=== PATIENT | female | born 1965 | race Caucasian/White ===

== ENCOUNTER 2019-04-13 05:23 | Inpatient (IN) | payer BC, MEDICAID ==
[2019-04-13] MEDS ORDERED: Acetaminophen 500 MG Tab PO ONE (05:45)
[2019-04-13] MEDS ORDERED: Gabapentin 300 MG Cap PO ONE (05:45)
[2019-04-13] MEDS ORDERED: Scopolamine 1.5 MG Transdermal Patch TOP ONE (05:45)
[2019-04-13] MEDS ORDERED: Celecoxib 200 MG Cap PO ONE (05:45)
[2019-04-13] MEDS ORDERED: Dextrose 5%-Lactated Ringers 1,000 ML IV SCH (06:00)
[2019-04-13] MEDS ORDERED: Neostigmine Methylsulfate 1 MG/ML 5 ML Syringe ONE (06:18)
[2019-04-13] MEDS ORDERED: Succinylcholine 200 MG/10 ML MDV ONE (06:18)
[2019-04-13] MEDS ORDERED: Dexamethasone 4 MG/ML SDV ONE (06:18)
[2019-04-13] MEDS ORDERED: Lactated Ringers 1,000 ML ONE ×2 (06:18→08:54)
[2019-04-13] MEDS ORDERED: Propofol 200 MG/20 ML SDV ONE (06:18)
[2019-04-13] MEDS ORDERED: Rocuronium 50 MG/5 ML Vial ONE ×2 (06:18→08:54)
[2019-04-13] MEDS ORDERED: Ondansetron 4 MG/2 ML SDV ONE (06:18)
[2019-04-13] MEDS ORDERED: Glycopyrrolate 0.2 MG/ML 5 ML MDV ONE (06:18)
[2019-04-13] MEDS ORDERED: fentaNYL 250 MCG/5 ML SDV ONE (06:19)
[2019-04-13] MEDS ORDERED: Midazolam 1 MG/ML 2 ML SDV ONE (06:19)
[2019-04-13] MEDS ORDERED: cefOXitin 2 GM Vial ONE (07:09)
[2019-04-13] MEDS ORDERED: Ketamine 500 MG/5 ML MDV IV SCH (07:15)
[2019-04-13] MEDS ORDERED: Ketamine 50 MG in Sodium Chloride 0.9% 49.5 ML IV SCH (07:15)
[2019-04-13] MEDS ORDERED: Lidocaine 2% 100 MG/5 ML Syringe IVPUSH SCH (07:15)
[2019-04-13] MEDS ORDERED: cefOXitin 2 GM in Sodium Chloride 0.9% 50 ML IV ONE (07:15)
[2019-04-13 07:23] LABS: HEMOGLOBIN A1C 5.9 % (4.5-6.2)
[2019-04-13] MEDS: Lidocaine 0.4%/D5W 2 GM/500 ML BAG IV SCH (08:00)
[2019-04-13] MEDS ORDERED: hydrOXYzine HCl 100 MG/2 ML SDV IM ONE (10:35)
[2019-04-13] MEDS ORDERED: fentaNYL 100 MCG/2 ML SDV IVPUSH ONE ×2 (10:36→10:59)
[2019-04-13] MEDS ORDERED: Labetalol 100 MG/20 ML MDV IVPUSH ONE ×2 (11:03→11:17)
[2019-04-13] MEDS ORDERED: HYDROmorphone 1 MG/ML Syringe IV PRN (12:32)
[2019-04-13] MEDS ORDERED: HYDROmorphone 0.5 MG/0.5 ML Syringe IVPUSH PRN (12:32)
[2019-04-13] MEDS ORDERED: hydrOXYzine HCl 100 MG/2 ML SDV IM PRN (12:32)
[2019-04-13] MEDS ORDERED: Labetalol 20 MG/4 ML Syringe IVPUSH PRN (12:32)
[2019-04-13] MEDS ORDERED: Ondansetron 4 MG/2 ML SDV IVPUSH PRN (12:32)
[2019-04-13] MEDS ORDERED: Metoclopramide 10 MG/2 ML SDV IVPUSH PRN (12:32)
[2019-04-13] MEDS ORDERED: diphenhydrAMINE 50 MG/ML SDV IVPUSH PRN (12:32)
[2019-04-13] MEDS ORDERED: Pantoprazole 40 MG Vial IVPUSH SCH (13:00)
[2019-04-13] MEDS: Gabapentin 250 MG/5 ML Solution ML 470 ML Bottle PO SCH ×2 (13:09→23:02)
[2019-04-13] MEDS: Acetaminophen Soln 650 MG/20.3 ML UD Cup PO SCH ×2 (13:09→18:38)
[2019-04-13] MEDS: Dextrose 5%-Lactated Ringers 1,000 ML IV SCH ×2 (13:55→23:01)
[2019-04-13] MEDS: cefOXitin 2 GM in Sodium Chloride 0.9% 50 ML IV SCH ×2 (15:17→19:44)
[2019-04-13] MEDS ORDERED: MVI, Adult with Vitamin K 10 ML, Thiamine 200 MG, Chromium/Copper/Mang/Selen/Zn 1 ML in... IV SCH ×4 (16:00)
[2019-04-13] MEDS: Heparin Sodium 5,000 Units/ML Vial SUBCUT SCH (16:19)
[2019-04-13] MEDS: Metoprolol Tartrate 25 MG Tab PO SCH (23:01)
[2019-04-14] MEDS ORDERED: Iopamidol 510 MG/ML 50 ML SDV PO STA (01:21)
[2019-04-14] MEDS: Acetaminophen Soln 650 MG/20.3 ML UD Cup PO SCH ×4 (01:30→17:51)
[2019-04-14] MEDS: cefOXitin 2 GM in Sodium Chloride 0.9% 50 ML IV SCH ×2 (01:32→08:54)
--- NOTE | 2019-04-14 02:37 | CRLCR ---
Indication: Modified upper GI series Technique: Three views of the abdomen administered following the administration of oral contrast Comparison: None available Findings/Impression : Post gastrojejunostomy changes seen with a left upper quadrant drain. Contrast opacifying the distal esophagus, gastrojejunostomy and proximal, mildly prominent left abdominal jejunal segments. No gross contrast extravasation visualized. Dictated by Ladarius Boone MD @ 04/14/2019 2:35:23 AM Dictated by: Ladarius Boone MD @ 04/14/2019 02:35:29 (Electronically Signed)
[2019-04-14] MEDS: Heparin Sodium 5,000 Units/ML Vial SUBCUT SCH ×2 (05:02→16:36)
[2019-04-14] MEDS: Dextrose 5%-Lactated Ringers 1,000 ML IV SCH (05:07)
[2019-04-14] MEDS ORDERED: Ondansetron 4 MG Tab.DIS PO PRN (08:01)
[2019-04-14] MEDS ORDERED: Meclizine 25 MG Tab PO PRN (08:02)
[2019-04-14] MEDS ORDERED: Dextrose 5%-Lactated Ringers 1,000 ML IV SCH (08:15)
[2019-04-14] MEDS ORDERED: Metoprolol Tartrate 25 MG Tab PO SCH (08:15)
[2019-04-14] MEDS: Lidocaine 0.4%/D5W 2 GM/500 ML BAG IV SCH (08:23)
[2019-04-14] MEDS: Celecoxib 200 MG Cap PO SCH (08:25)
[2019-04-14] MEDS: Metoprolol Tartrate 25 MG Tab PO SCH ×2 (08:25→20:22)
[2019-04-14] MEDS: Isosorbide Mononitrate 30 MG Tab.ER PO SCH (08:26)
[2019-04-14] MEDS: Gabapentin 250 MG/5 ML Solution ML 470 ML Bottle PO SCH ×3 (08:53→20:21)
[2019-04-14] MEDS: SCOPOLAMINE PATCH CHECK TOP SCH (08:56)
[2019-04-14] MEDS: CHECK PATCH DAILY TOP SCH (08:56)
[2019-04-14] MEDS ORDERED: ISOSORBIDE MONONITRATE 60 MG PO SCH (09:00)
[2019-04-14] MEDS ORDERED: Sodium Chloride 0.65% Nasal Spray 45 ML Bottle NAS PRN (09:02)
--- NOTE | 2019-04-14 11:34 | PN ---
DATE OF SERVICE: 04/14/2019 SUBJECTIVE: Velvet is postoperative day 1 following a Coleen-en-Y gastric bypass surgery. Her upper GI was normal. Pain is controlled. Vital signs stable. She has been up, ambulating. Oral intake was 720 and urine output 3600. MOHAMUD drain put out 139 of a light pink drainage. REVIEW OF SYSTEMS: Remainder of review of systems negative for any pertinent positives and negatives. OBJECTIVE: GENERAL: Velvet Swenson is a 54-year-old female. She is alert and orientated. VITAL SIGNS: TPR 95.7, 86, 16. Blood pressure 134/83. HEENT: Negative. NECK: Supple. HEART: Regular rate and rhythm. LUNGS: Clear. ABDOMEN: Dressings dry and intact. Abdominal binder is on. MOHAMUD drain intact. EXTREMITIES: SCDs are on. There is no peripheral edema. ASSESSMENT: Laparoscopic Coleen-en-Y gastric bypass surgery with liver biopsy, repair of diaphragmatic hernia, and excision of mediastinal lipoma for morbid obesity, hepatomegaly, diaphragmatic hernia, and mediastinal lipoma, 04/13/2019. Surgeon, Jimenez Hernández MD. PLAN: 1. Step-2 gastric bypass diet without cereal. 2. Decrease IV to 100 mL/hour. 3. Communication order, 3 med cups per hour to record at bedside. 4. Dressing off. 5. May shower. 6. Start Imdur 60 mg p.o. daily, lisinopril/hydrochlorothiazide 20/25 one tablet daily, Antivert 25 mg p.o. daily p.r.n., Lopressor 25 mg p.o. every 12 hours, Zofran ODT 4 mg sublingual q.4 hours p.r.n. nausea. 7. Good pulmonary toilet. 8. We will evaluate p.r.n. or in a.m. Natty Ford PA-C /[id number]
[2019-04-14] MEDS ORDERED: Pantoprazole 40 MG Delayed-Release Granules 1 Packet PO SCH (14:00)
[2019-04-14] MEDS ORDERED: MVI, Adult with Vitamin K 10 ML, Thiamine 200 MG, Chromium/Copper/Mang/Selen/Zn 1 ML in... IV SCH ×4 (16:00)
[2019-04-14] MEDS: Hydrochlorothiazide 25 MG Tab PO SCH (16:37)
[2019-04-14] MEDS: Lisinopril 20 MG Tab PO SCH (16:37)
[2019-04-14] MEDS ORDERED: Lisinopril 20 MG Tab PO SCH (17:00)
[2019-04-14] MEDS ORDERED: Hydrochlorothiazide 25 MG Tab PO SCH (17:00)
[2019-04-14] MEDS: HYDROmorphone 2 MG Tab PO PRN (22:40)
[2019-04-15] MEDS: Acetaminophen Soln 650 MG/20.3 ML UD Cup PO SCH ×2 (00:30→05:35)
[2019-04-15] MEDS: Heparin Sodium 5,000 Units/ML Vial SUBCUT SCH (04:00)
[2019-04-15] MEDS: HYDROmorphone 2 MG Tab PO PRN ×2 (05:45→09:40)
[2019-04-15] MEDS: Isosorbide Mononitrate 30 MG Tab.ER PO SCH (07:58)
[2019-04-15] MEDS: Celecoxib 200 MG Cap PO SCH (07:59)
[2019-04-15] MEDS: Lisinopril 20 MG Tab PO SCH (08:41)
[2019-04-15] MEDS: Hydrochlorothiazide 25 MG Tab PO SCH (08:42)
[2019-04-15] MEDS: Metoprolol Tartrate 25 MG Tab PO SCH (08:42)
[2019-04-15] MEDS: CHECK PATCH DAILY TOP SCH (08:44)
[2019-04-15] MEDS: SCOPOLAMINE PATCH CHECK TOP SCH (08:45)
[2019-04-15] MEDS: Gabapentin 250 MG/5 ML Solution ML 470 ML Bottle PO SCH (08:52)
[2019-04-15] MEDS ORDERED: Cyanocobalamin (Vitamin B12) 1,000 MCG/ML SDV IM ONE (09:00)
--- NOTE | 2019-04-15 18:22 | DISCH ---
ADMISSION DIAGNOSES: 1. Morbid obesity, BMI 51. 2. Hypertension. 3. Hypertriglyceridemia. 4. Benign proximal positional vertigo. 5. Nonobstructive atherosclerosis of coronary artery. 6. Obstructive sleep apnea, on CPAP. DISCHARGE DIAGNOSES: 1. Laparoscopic Coleen-en-Y gastric bypass surgery with liver biopsy. 2. Repair of paraesophageal diaphragmatic hernia. 3. Excision of mediastinal lipoma for morbid obesity. 4. Hepatomegaly. 5. Diaphragmatic hernia. 6. Mediastinal lipoma. DATE OF SURGERY: 04/13/2019. Surgeon, Jimenez Hernández MD. HISTORY: Velvet Swenson is a 54-year-old female with longstanding history of morbid obesity and increasing comorbidities. After preoperative evaluation and discussion of possible risks and possible complications, she wished to proceed with surgical procedure. HOSPITAL COURSE: Velvet had her surgery on 04/13/2019. She had no operative complications. On postoperative day #1, her upper GI was normal. She was started on a step 2 gastric bypass diet without cereal. Her home medications were started. On postoperative day #2, her pain was well managed. Activity was good. She received dietary instruction. B12 1000 mcg injection and was able to be discharged to home. PHYSICAL EXAMINATION: GENERAL: Velvet Swenson is a 54-year-old female. She is alert, orientated. VITAL SIGNS: Height is 5 feet 6 inches. Weight is 318 pounds. BMI is 51.3. TPR is 97.7, 80, 16. Blood pressure 122/60. HEENT: Negative. NECK: Supple. HEART: Regular rate and rhythm. LUNGS: Clear. ABDOMEN: Incisions look good. Abdominal binder is on. MOHAMUD drain was removed. 4x4 was placed over MOHAMUD drain site. EXTREMITIES: Without peripheral edema. DISPOSITION: Discharge to home. CONDITION: Stable and improving. FOLLOWUP: Followup appointment with Natty Ford PA-C, on 04/22/2019 at 11 a.m. HOME MEDICATIONS: 1. Tylenol 650 mg oral q.6 hours p.r.n. pain. 2. Celebrex 200 mg p.o. daily #14. 3. Zofran ODT 4 mg every 4 hours p.r.n. nausea #30. 4. She is to resume home medication of Imdur 60 mg daily. 5. Lisinopril/hydrochlorothiazide 20/25 one tablet every evening. 6. Antivert 25 mg oral daily p.r.n. dizziness. 7. Metoprolol 25 mg oral every 12 hours. 8. Protonix 40 mg oral daily. 9. Papaya enzyme one tablet as directed. 10.Lipitor 80 mg oral at bedtime. 11.She is to discontinue taking her vitamins and supplements after first postoperative appointment. DIET: Step 2 gastric bypass diet with no cereal until Sunday, April 28, 2019. OTHER ACTIVITY: No lifting over 10 pounds for 2 weeks. Walk at least 6 times inside your house a day. Driving, do not drive for 1 week. Shower/bathing, may shower. Notify provider if any fever, nausea, or vomiting. Keep site clean and dry. Wear abdominal binder for 2 weeks and then as tolerated. SPECIAL INSTRUCTIONS: Use incentive spirometer 10 times every hour while awake for 1 week.
--- NOTE | 2019-04-16 08:37 | OR ---
DATE OF PROCEDURE: 04/13/2019 SURGEON: Jimenez Hernández MD PREOPERATIVE DIAGNOSIS: Morbid obesity. POSTOPERATIVE DIAGNOSES: 1. Morbid obesity. 2. Marked hepatomegaly. 3. Paraesophageal diaphragmatic hernia. 4. Mediastinal lipoma. OPERATIVE PROCEDURES: 1. Laparoscopic Coleen-en-Y gastric bypass with long-limb gastroenterostomy (89342). 2. Rocky-Cut needle liver biopsy (26778). 3. Repair of paraesophageal diaphragmatic hernia (15652). 4. Excision of mediastinal lipoma (18216). ANESTHESIA: General. ASSISTANTS: Natty Ford PA-C, and Paul Nolen MS-1. INDICATIONS FOR PROCEDURE: This is a 54-year-old female presenting with longstanding morbid obesity and increasingly significant comorbidities. After preoperative evaluation and discussion, she wished to proceed with a gastric bypass procedure. Potential risks of the procedure including bleeding, infection, leaks from various GI tract closures, and problems with bowel obstruction over time were all reviewed with the patient, and she wishes to proceed. DETAILS OF PROCEDURE: The patient was taken to the operating room and placed in the supine position. After general endotracheal anesthesia was induced, she was converted to a lithotomy position, and the abdomen was prepped and draped. At 15 cm inferior and 5 cm left of the xiphoid process, a transverse incision was made, and the peritoneal cavity entered under direct vision with an Optiview trocar, inflated to 15 mmHg pressure of CO2. Laparoscope was then reinserted, and no underlying trocar insertion site injuries were seen. Following this, 5 additional trocars were placed across the upper and midabdomen. General exploration was undertaken. Bilateral transversus abdominis plane blocks were placed. The liver was noted to be markedly enlarged and fatty infiltrated. Rocky-Cut needle biopsy was obtained from the left lobe of liver. Minimal bleeding from the biopsy sites was controlled with electrocautery. The omentum was then divided in the midline at the level of the transverse colon. This allowed identification of the small bowel at the ligament of Treitz. Small bowel was then traced out 150 cm distal to that point, where it was divided transversely with a MAU stapler. Small bowel was then traced out additional 150 cm, where the [id number] enteroenterostomy was accomplished with an internal firing of the Endo-MAU 60-mm stapler. Common opening was then closed transversely with the same stapler. Angles of anastomosis and mesenteric defect approximated with some 0 Ethibond stitch, along with fibrin sealant. The liver was then retracted anteriorly. The patient was noted to have a fairly large paraesophageal diaphragmatic hernia. This contained some omentum prolapsing along the edge of the stomach, in addition to a large amount of fundus and perigastric fat prolapsing into the hernia as well. These were reduced. Into the course of the crural dissection, a mediastinal lipoma was encountered, which was excised to facilitate more adequate repair. The repair was then completed anteriorly with 0 Ethibond sutures, reinforced with PTFE pledgets. Gastrointestinal balloon catheter was then inflated to 15 mL and pulled up snuggly against the EG junction. Gastric wall over the apex of balloon was then marked with electrocautery, balloon catheter deflated and pulled up into the esophagus. The lesser omental tissue around the gastric cardia was then incised, allowing dissection behind the stomach at that level. The pouch formation was initiated with a transverse firing of the MAU stapler at the level of the cauterized radha and completed with firings of MAU nolberto up to and through the angle of His. Upon completion of the pouch, both staple lines were noted to be intact. The anvil of a 25-mm EEA stapler was attached to Hartley sump type tube. The latter was brought down through the mouth and taken out through a small opening in the gastric pouch, which allowed the anvil likewise to be pulled down to within the gastric pouch. The divided end of the Coleen limb was then opened and main body of the EEA stapler brought up the anvil and united with it, thus completing the gastrojejunostomy. Upon removal of the stapler, double donuts of mucosa were noted within it. Small bowel was closed off with a vascular staple line. Gastrojejunostomy was reinforced with 3-0 Vicryl seromuscular stitch, along with fibrin sealant. A leak test was accomplished with injection of 120 mL of air in the gastric pouch, while submerged in cefoxitin-containing saline solution. No leaks were identified. A single Iftikhar-Teague drain was then placed adjacent to gastrojejunostomy and taken out through subcostal trocar sites. With no further problems noted, trocars were removed and the peritoneal cavity deflated. Incision was closed with 4-0 Vicryl skin stitch and dressing applied. Physician special events assistant, Natty Ford, played an essential role in assisting in this case, helping to position the patient, retract structures as needed, and suturing when needed. Her presence improved patient safety and decreased the operative time. Jimenez Hernández MD /[id number]
== END 2019-04-15 10:24 | disposition home or self-care (01) | DRG 403 ==
LOC: JP.SDS 05:23 → JP.MS 05:23 → EDSTATUS 07:30 → JP.2SS 11:00
PROVIDERS: ADMIT Surgery; ATTEND Surgery
PROC: 0D164ZA Bypass Stomach to Jejunum, Percutaneous Endoscopic Approach (ICD-10-PCS; principal; 2019-04-13)
PROC: 0WBC4ZX Excision of Mediastinum, Percutaneous Endoscopic Approach, Diagnostic (ICD-10-PCS; 2019-04-13)
PROC: 0FB24ZX Excision of Left Lobe Liver, Percutaneous Endoscopic Approach, Diagnostic (ICD-10-PCS; 2019-04-13)
PROC: 0BQT4ZZ Repair Diaphragm, Percutaneous Endoscopic Approach (ICD-10-PCS; 2019-04-13)
DX: E66.01 Morbid (severe) obesity due to excess calories (principal); R16.0 Hepatomegaly, not elsewhere classified; K76.0 Fatty (change of) liver, not elsewhere classified; K44.9 Diaphragmatic hernia without obstruction or gangrene; D17.4 Benign lipomatous neoplasm of intrathoracic organs; Z68.43 Body mass index [BMI] 50.0-59.9, adult; I10 Essential (primary) hypertension; I25.119 Atherosclerotic heart disease of native coronary artery with unspecified angina pectoris; E78.1 Pure hyperglyceridemia; G47.33 Obstructive sleep apnea (adult) (pediatric); Z99.89 Dependence on other enabling machines and devices; K21.9 Gastro-esophageal reflux disease without esophagitis; H81.10 Benign paroxysmal vertigo, unspecified ear; H52.10 Myopia, unspecified eye; H52.209 Unspecified astigmatism, unspecified eye; Z87.891 Personal history of nicotine dependence; Z90.49 Acquired absence of other specified parts of digestive tract; Z79.82 Long term (current) use of aspirin
CPT/HCPCS: 36415; 74240; 82962; 83036; 83735; 83880; 84100; 86850; 86900; 86901; 88304; 88307; 88313; 94762; A9270-GY; C9113; J0171; J0330; J0694; J1100; J1644; J2001; J2250; J2405; J2704; J2710; J2795; J3010; J3410; J3411; J3420; J3490; J7042; J7050; J7120; Q9967